=== PATIENT | female | born 1965 | race Caucasian/White ===

== ENCOUNTER 2024-06-06 12:31 | Emergency (ER) | payer OTHER, SELFPAY ==
[2024-06-06 12:33] VITALS: BP 191/119
--- NOTE | 2024-06-06 12:51 | ED.GENMED ---
History of Present Illness
General
Chief Complaint: Musculo-Skeletal Complaint
Source: patient
Exam Limitations: none
Time Seen by Provider: 06/06/24 12:38
Nursing documentation reviewed up to this point in time: agreed with
History of Present Illness
History of Present Illness:
59-year-old female presenting to the emergency department today with concerns of left-sided flank discomfort over the past 24 hours or so. Denies any specific inciting event. No associated nausea vomiting numbness weakness change in bowel
movements or urination. No rashes.
Past History
Past History
ED Past Medical History: None
ED Past Surgical History: None
Review of Systems
Review of Systems
Allergies reviewed?: Yes
All Other Systems: ROS reviewed and negative except as documented in HPI and ROS
Phy Exam
Physical Exam
Physical Exam:
GENERAL: Alert , in no apparent distress
EYE: pupils equal and reactive
NECK: Supple, no significant adenopathy.
ENT: o/p clr, mmm.
CARDIAC: Regular rate and rhythm .
LUNGS: Clear breath sounds bilaterally, no acute respiratory distress, no wheezes/rales/rhonchi
ABDOMEN: Soft, without focal tenderness, no r/g, no cvat
NEUROLOGICAL: Alert and oriented, no focal neuro deficits
SKIN: Warm and dry, skin intact.
MUSCULOSKELETAL: No edema, well perfused.
PSYCH: Normal and appropriate interaction.
Course
Orders/Labs/Results
Orders:
Orders
06/06/24 12:43
Urinalysis Reflex To Culture Urgent
Ketorolac [Toradol] 15 mg IV NOW STA
Ondansetron Injectable [Zofran] 4 mg IV NOW STA
06/06/24 12:44
CT Abd/pel Without Iv Or Oral Urgent
Comment:
Reason For Exam: L flank pain
06/06/24 13:02
Complete Blood Count/With Diff Urgent
Comprehensive Metabolic Panel Urgent
06/06/24 13:34
Acetaminophen [Tylenol] 1,000 mg PO NOW STA
06/06/24 13:35
Lidocaine [Lidocaine 4% Patch] 1 patch TOPICAL ONCE ONE
Apply Lidocaine patch(s) to:: left rib
06/06/24 14:20
Dexamethasone [Decadron] 10 mg PO NOW STA
Oxycodone [Roxicodone] 10 mg PO NOW STA
06/06/24 14:59
Vital Signs- Treatment ONCE
Frequency: Once
Abnormal Lab Results
06/06/24
13:02
Potassium 3.3 L mmol/L
(3.5-5.1)
Carbon Dioxide 21 L mmol/L
(22-30)
Creatinine 1.1 H mg/dL
(0.6-1.0)
Glucose 130 H mg/dl
(70-99)
Alkaline Phosphatase 130 H U/L
(38-126)
06/06/24 13:02
06/06/24 13:02
Vital Signs
Initial and Last Documented VS:
Initial Vital Signs
Temp Pulse Resp BP Pulse Ox
98.5 F 117 18 191/119 99
06/06/24 12:33 06/06/24 12:33 06/06/24 12:33 06/06/24 12:33 06/06/24 12:33
Last Documented Vital Signs
Temp Pulse Resp BP Pulse Ox
98.5 F 88 16 141/77 99
06/06/24 12:33 06/06/24 15:21 06/06/24 15:21 06/06/24 15:21 06/06/24 15:21
MDM/Problems Addressed
MDM/Problems Addressed:
59-year-old female presenting to the emergency department today with concerns of left-sided flank discomfort starting yesterday morning. Upon arrival tachycardic otherwise vital signs are normal. Patient appears uncomfortable no rashes somewhat
reproducible to the left CVA region. CT scan without emergent findings other than multiple low back degenerative changes. No evidence of emergent pathology. Patient was given additional pain medications with significant improvement. She was
advised for close outpatient follow-up. Return precautions given. Of note the patient's initial tachycardia fully resolved after receiving appropriate pain medication. The patient did urinate without giving us a sample while here. At the end of
her stay there is on her that we should get a urinary sample. She claims that she does not have a symptoms. There is no evidence of inflammation to the urinary tract on CT scan. The would likely be fairly low at this point considering this
patient elected to leave prior to giving a urine sample. Otherwise she was vies for close outpatient follow-up return precautions given.
*Critical Care Note
Total Time (30-74mins, 75-104mins- exclusive of procedures): Not Applicable
ED Attending Note
-
Portions of this chart may have been created with voice recognition software.� Occasional wrong word or��sound alike� substitutions may have occurred due to the inherent limitations of voice recognition software.
Discharge Plan
Departure
Patient Disposition: Home (Routine Discharge)
Date of Disposition: 06/06/24
Time of Disposition: 15:26
Patient with high blood pressure during this ER visit?: No
Condition: Good
Covid-19: Not Applicable
Discharge Problem:
Back pain
Instructions: Flank Pain ED
Prescriptions:
New
oxycodone 5 mg tablet
5 mg PO Q8H PRN (Reason: Pain) Qty: 7 0RF
Referrals:
Jaimie Mckeon DO [Family Provider] -
Activity Restrictions/Additional Instructions:
You came to the emergency department today with concerns of left-sided flank discomfort. Here you have a reassuring assessment. Please follow-up closely with your primary care doctor and take the pain medication as needed. Return for any
worsening, new or concerning symptoms.
Interventions
Interventions:
*Risk Screen - Suicide Last Done: 06/06/24 12:33
*General Assessment Last Done: 06/06/24 12:33
*Neglect/Abuse Screening Last Done: 06/06/24 12:33
*ED COVID-19 Vaccine History Last Done: 06/06/24 14:12
ED-Musculoskeletal Assessment Last Done: 06/06/24 14:00
Discharge Date and Time
Print Language: CROATIAN
[2024-06-06] MEDS: TORADOL 15 MG IV (13:06)
[2024-06-06] MEDS: ZOFRAN 4 MG IV (13:06)
[2024-06-06 13:11] LABS: % Basophils 0.2 % (0-2); % Eosinophils 1.4 % (0-6); % Immature Granulocytes 0.2 % (0-0.5); % Lymphocytes 26.4 % (20.5-51.1); % Monocytes 7.7 % (1.7-9.3); % Neutrophils 64.1 % (42.2-75.2); Absolute Eosinophils 0.1 10^3/uL (0-0.7); Absolute Lymphocytes 2.2 10^3/uL (1.2-3.4); Absolute Monocytes 0.6 10^3/uL (0.1-0.6); Absolute Neutrophils 5.3 10^3/uL (1.4-6.5); Hematocrit 45.2 % (37.0-47.0); Hemoglobin 15.7 g/dL (12.0-16.0); Mean Corp Hgb Conc. 34.7 g/dL (33.0-37.0); Mean Corpuscular Volume 86.4 fL (81.0-99.0); Mean Platelet Volume 10.2 fL (7.4-10.4); Nucleated Red Blood Cells % 0 %; Platelet Count 282 10^3/uL (130-400); Red Blood Cell Count 5.23 10^6/uL (4.20-5.40); Red Cell Dist. Width 12.9 % (11.5-14.5); White Blood Cell Count 8.3 10^3/uL (4.8-10.8)
[2024-06-06 13:36] LABS: ALT (SGPT) 24 U/L (0-35); AST (SGOT) 22 U/L (14-36); Albumin 4.9 g/dl (3.5-5.0); Alkaline Phosphatase 130 U/L (38-126); Blood Urea Nitrogen 16 mg/dl (7-17); Calcium 10.1 mg/dl (8.4-10.2); Carbon Dioxide 21 mmol/L (22-30); Chloride 106 mmol/L (98-107); Glucose 130 mg/dl (70-99); Potassium 3.3 mmol/L (3.5-5.1); Sodium 141 mmol/L (135-145); Total Bilirubin 0.8 mg/dl (0.2-1.3); Total Protein 7.1 g/dl (6.3-8.2); eGFR 58.24
[2024-06-06] MEDS: TYLENOL 1000 MG PO (13:47)
[2024-06-06] MEDS: LIDOCAINE 4% PATCH 1 PATCH TOPICAL (13:47)
[2024-06-06] MEDS: ROXICODONE 10 MG PO (14:36)
[2024-06-06] MEDS: DECADRON 10 MG PO (14:36)
[2024-06-06 15:21] VITALS: BP 141/77
== END 2024-06-06 15:36 | disposition home or self-care (01) ==
LOC: EMR 12:31
PROVIDERS: Physician Assistant; EMERGENCY PHYSICIAN Emergency Medicine; FAMILY PHYSICIAN Internal Medicine
DX: M54.9 Dorsalgia, unspecified (principal)
CPT/HCPCS: 99284; 96374; 96375; 74176; 80053; 85025